=== PATIENT | female | born 1945 | race Caucasian/White ===

== ENCOUNTER 2016-11-17 17:13 | Inpatient (IN) | payer BC, MEDICARE ==
[2016-11-17] MEDS ORDERED: NS 0.9% 1000 ML* 1,000 ML IV ONE ×2 (19:47→20:27)
[2016-11-17 20:24] LABS: Hematocrit 35 % (35-47); Hemoglobin 11.3 g/dl (12.0-16.0); Mean Corpuscular HGB Conc 32 g/dl (31-36); Mean Corpuscular Hemoglobin 30 pg (27-31); Mean Corpuscular Volume 93 fL (80-97); Mean Platelet Volume 7 um3 (7.4-10.4); Red Blood Count 3.75 10^6/ul (4.0-5.4); Red Cell Distribution Width 15 % (10.5-15); White Blood Count 12.4 10^3/ul (3.5-10.8)
[2016-11-17] MEDS ORDERED: Acetaminophen TAB* 325 MG PO ONE (20:26)
[2016-11-17] MEDS ORDERED: fentaNYL* 50 MCG/ML 2 ML VIAL (100 MCG VIAL) IV SLOW PU ONE (20:26)
[2016-11-17 20:39] LABS: ALT 15 U/L (7-52); Albumin 3.6 g/dL (3.2-5.2); Alkaline Phosphatase 92 U/L (34-104); BUN/Creatinine Ratio 24.7 (8-20); Blood Urea Nitrogen 18 mg/dL (6-24); C Reactive Protein 221.07 mg/L (< 5.00); CO2 Carbon Dioxide 32 mmol/L (22-32); Calcium 9.7 mg/dL (8.6-10.3); Chloride 99 mmol/L (101-111); EGFR African American 100.8 (>60); EGFR Non-African American 78.4 (>60); Globulin 4.9 g/dL (2-4); Glucose 96 mg/dL (70-100); Sodium 134 mmol/L (133-145); Total Protein 8.5 g/dL (6.4-8.9)
[2016-11-17 20:47] LABS: Anion Gap 3 mmol/L (2-11)
[2016-11-17] MEDS ORDERED: Vancomycin(*) 1,000 MG VIAL IVPB SCH (21:00)
[2016-11-17] MEDS ORDERED: Vancomycin 1500 MG IV - x ONCE IVPB ONE ×2 (21:00)
--- NOTE | 2016-11-17 21:12 | ED ---
Jackie Lal Alfonso scribed for Priscila Hinton MD on 11/17/16 at 1923 . Lower Extremity - HPI Summary HPI Summary: This patient is a 71 year old F presenting to [facility] accompanied by daughter with a chief complaint of bilateral calf erythema worse since 3 days ago. The patient rates the pain 10/10 in severity. Symptoms aggravated by ambulation and touch. Symptoms alleviated by nothing. Patient reports calf swelling. Patient denies fever. She reports inability to ambulate. She has been seeing a phone triage specialist for her bilateral LE wounds. - History of Current Complaint Chief Complaint: EDExtremityLower Stated Complaint: LEG PAIN Time Seen by Provider: 11/17/16 19:06 Hx Obtained From: Patient Onset of Pain: Days - 3 Pain Intensity: 10 Pain Scale Used: 0-10 Numeric Timing: Constant Location: Is Discrete @ - RLE AND LLE Associated Signs And Symptoms: Positive: Other - calf swelling. Patient denies fever. Aggravating Factor(s): Ambulation, Other - touch Alleviating Factor(s): Nothing - Allergies/Home Medications Allergies/Adverse Reactions: Allergies Allergy/AdvReac Type Severity Reaction Status Date / Time Amoxicillin Allergy Rash Verified 11/17/16 17:22 Iodine Allergy Difficulty Verified 11/17/16 17:23 Breathing/Wheezing Sulfa Antibiotics Allergy Rash Verified 11/17/16 17:22 PMH/Surg Hx/FS Hx/Imm Hx Opthamlomology History: Denies: Hx Legally Blind EENT History: Denies: Hx Deafness Infectious Disease History: Yes Infectious Disease History: Denies: Traveled Outside the [place] in Last 30 Days - Family History Known Family History: Positive: Diabetes - Social History Alcohol Use: Rare Substance Use Type: Reports: None Smoking Status (MU): Never Smoked Tobacco Review of Systems Negative: Fever Positive: Other - bilateral calf swelling Positive: Other - bilateral calf erythema All Other Systems Reviewed And Are Negative: Yes Physical Exam Triage Information Reviewed: Yes Vital Signs On Initial Exam: Initial Vitals Temp Pulse Resp BP Pulse Ox 99.0 F 83 20 169/75 97 11/17/16 17:18 11/17/16 17:18 11/17/16 17:18 11/17/16 17:18 11/17/16 17:18 Vital Signs Reviewed: Yes Appearance: Positive: Well-Appearing, Pain Distress - Moderate Skin: Positive: Warm, Skin Color Reflects Adequate Perfusion, Dry Eyes: Positive: EOMI, ISH ENT: Positive: Pharynx normal, TMs normal Neck: Positive: Supple, Nontender Respiratory/Lung Sounds: Positive: Clear to Auscultation, Breath Sounds Present. Negative: Rales, Rhonchi, Wheezes Cardiovascular: Positive: RRR, Other - No gallop. Negative: Murmur, Rub Abdomen Description: Positive: Nontender, Soft, Other: - No rebound. Negative: Distended, Guarding Bowel Sounds: Positive: Present Musculoskeletal: Positive: Other - RLE: Erythema from middle of her lower foot to her upper calf. 1 cm ulcerated areas. Tender. LLE: Foot darkened and red with brawny appearance. Proximal calf 4 cm circumference area of increased erythema. Tender. Neurological: Positive: Alert, Oriented to Person Place, Time, CN Intact II-III Psychiatric: Positive: Affect/Mood Appropriate - [place] Coma Scale Coma Scale Total: 15 Diagnostics - Vital Signs Vital Signs Temp Pulse Resp BP Pulse Ox 11/17/16 17:18 99.0 F 83 20 169/75 97 - Laboratory Lab Results: Lab Results 11/17/16 11/17/16 Range/Units 20:05 20:05 WBC 12.4 H (3.5-10.8) 10^3/ul RBC 3.75 L (4.0-5.4) 10^6/ul Hgb 11.3 L (12.0-16.0) g/dl Hct 35 (35-47) % MCV 93 (80-97) fL MCH 30 (27-31) pg MCHC 32 (31-36) g/dl RDW 15 (10.5-15) % Plt Count 326 (150-450) 10^3/ul MPV 7 L (7.4-10.4) um3 Neut % (Auto) 69.5 (38-83) % Lymph % (Auto) 19.2 L (25-47) % [place] % (Auto) 8.8 (1-9) % Eos % (Auto) 1.4 (0-6) % Baso % (Auto) 1.1 (0-2) % Absolute Neuts (auto) 8.6 H (1.5-7.7) 10^3/ul Absolute Lymphs (auto) 2.4 (1.0-4.8) 10^3/ul Absolute Monos (auto) 1.1 H (0-0.8) 10^3/ul Absolute Eos (auto) 0.2 (0-0.6) 10^3/ul Absolute Basos (auto) 0.1 (0-0.2) 10^3/ul Absolute Nucleated RBC 0 10^3/ul Nucleated RBC % 0 Sodium 134 (133-145) mmol/L Potassium TNP Chloride 99 L (101-111) mmol/L Carbon Dioxide 32 (22-32) mmol/L Anion Gap 3 (2-11) mmol/L BUN 18 (6-24) mg/dL Creatinine 0.73 (0.51-0.95) mg/dL Est GFR ( Amer) 100.8 (>60) Est GFR (Non-Af Amer) 78.4 (>60) BUN/Creatinine Ratio 24.7 H (8-20) Glucose 96 (70-100) mg/dL Calcium 9.7 (8.6-10.3) mg/dL Total Bilirubin 0.50 (0.2-1.0) mg/dL AST TNP ALT 15 (7-52) U/L Alkaline Phosphatase 92 (34-104) U/L C-Reactive Protein 221.07 H (< 5.00) mg/L Total Protein 8.5 (6.4-8.9) g/dL Albumin 3.6 (3.2-5.2) g/dL Globulin 4.9 H (2-4) g/dL Albumin/Globulin Ratio 0.7 L (1-3) Result Diagrams: 11/17/16 20:05 11/17/16 20:05 Lab Statement: Any lab studies that have been ordered have been reviewed, and results considered in the medical decision making process. - Radiology Lower extremity X-Ray Radiology Interpretation Completed By: Radiologist - Pending official interpretation from radiologist. See [employer]. Lower Extremity Course/Dx - Course Assessment/Plan: 71 yo female with new right leg cellulitis will be admitted by Dr. Gray - Diagnoses Provider Diagnoses: Cellulitis - Physician Notifications Discussed Care Of Patient With: Deanna Gray Time Discussed With Above Provider: 20:30 Instructed by Provider To: Other - Consulted Dr. Gray (hospitalist) who agrees to admit. Discharge - Discharge Plan Condition: Stable Disposition: ADMITTED TO [facility] documentation as recorded by the Jackie werner Alfonso accurately reflects the service I personally performed and the decisions made by me, Priscila Hinton MD.
--- NOTE | 2016-11-17 21:13 | RAD ---
Indication: Right lower leg cellulitis Comparison: None. Technique: AP and lateral views right lower leg. Report: There is radiographic appearance of induration of the subcutaneous fat seen diffusely. The visualized bones are adequately corticated and well aligned. There is no acute fracture, dislocation or other focal abnormality. The soft tissues appear grossly normal. IMPRESSION: The radiographic appearance is consistent with induration of the subcutaneous fat without underlying acute bony abnormality. If the patient's symptoms persist, follow-up imaging is recommended.
[2016-11-17] MEDS ORDERED: Ondansetron INJ* 2 MG/ML VIAL IV PRN (21:32)
[2016-11-17] MEDS ORDERED: Morphine INJ* 2 MG/ML 1 ML SYRINGE (TWO MG - NEW SYRINGE VERSION) IV PRN (21:32)
[2016-11-17] MEDS ORDERED: NS 0.9% 1000 ML* 1,000 ML IV SCH (21:45)
[2016-11-17] MEDS ORDERED: Vancomycin per Pharmacy* NOTE FOLLOW UP PRN (23:13)
[2016-11-17] MEDS ORDERED: Vancomycin(*) 1,500 MG in NS 0.9% 250 ML* 250 ML IVPB ONE (23:30)
[2016-11-18] MEDS: Heparin VIAL(*) 5000 UNITS/ML VIAL (FIVE THOUSAND) SUBCUT SCH ×4 (00:21→21:24)
[2016-11-18] MEDS ORDERED: oxyCODONE/Acetamin 5/325 MG* TAB PO PRN (01:21)
[2016-11-18] MEDS: fentaNYL* 50 MCG/ML 2 ML VIAL (100 MCG VIAL) IV SLOW PU PRN ×5 (01:56→23:32)
[2016-11-18 06:38] LABS: BUN/Creatinine Ratio 28.4 (8-20); C Reactive Protein 184.75 mg/L (< 5.00); Calcium 8.6 mg/dL (8.6-10.3); EGFR African American 111.3 (>60); EGFR Non-African American 86.5 (>60); Potassium 3.7 mmol/L (3.5-5.0)
[2016-11-18 06:39] LABS: Hematocrit 30 % (35-47); Hemoglobin 9.7 g/dl (12.0-16.0); Mean Corpuscular HGB Conc 33 g/dl (31-36); Mean Corpuscular Hemoglobin 30 pg (27-31); Mean Corpuscular Volume 93 fL (80-97); Mean Platelet Volume 7 um3 (7.4-10.4); Red Cell Distribution Width 15 % (10.5-15); White Blood Count 8.6 10^3/ul (3.5-10.8)
[2016-11-18 06:40] LABS: Add Diff/Slide Review? Slide Review Added
--- NOTE | 2016-11-18 07:42 | RAD ---
INDICATION: Hypertension. Tachycardia. COMPARISON: None TECHNIQUE: An AP seated portable view obtained at 2228 hours is submitted. FINDINGS: Bones/Soft Tissues: There are no acute bony findings. Cardiomediastinal: The cardiomediastinal silhouette is normal. Lungs: There are no infiltrates. There is mild platelike atelectasis or scarring in both lung bases Pleura: There are no pleural effusions. Other: None IMPRESSION: MILD PLATELIKE ATELECTASIS OR SCARRING. NO ACTIVE DISEASE.
--- NOTE | 2016-11-18 07:45 | RAD ---
INDICATION: Pain and swelling. COMPARISON: None TECHNIQUE: Duplex interrogation of the Lowerextremity was performed. FINDINGS: Deep veins: The common femoral, great saphenous, profunda femoris, proximal, mid, and distal deep femoral, popliteal, posterior tibial, and peroneal veins are patent. There is normal compressibility, augmentation, and phasic flow. Superficial veins: There are no findings of superficial thrombophlebitis. Popliteal fossa:There is no evidence of a popliteal cyst. Soft tissues:There are multiple shotty appearing lymph nodes in the right inguinal region. There is subcutaneous edema. IMPRESSION: SUSPECT CELLULITIS.. NO EVIDENCE OF DEEP VENOUS THROMBOSIS
[2016-11-18] MEDS ORDERED: Vancomycin(*) 1,000 MG in NS 0.9% 250 ML* 250 ML IVPB SCH ×2 (08:00→16:00)
[2016-11-18] MEDS: Nadolol TAB* 40 MG PO SCH (08:36)
--- NOTE | 2016-11-18 08:40 | CONSULT ---
Consult Consult: Orthopedic Consult S: 71 yo female with longstanding h/o bilateral LE erythema and recurrent wounds. Presented to [facility] last night with concerns of worsening erythema, pain, and wounds on bilateral LE. Having difficulty ambulating secondary to pain and swelling. Denies fever. Followed regularly by business account specialist Dr. Jeffries. This morning she reports pain is well managed with meds. She feels the swelling is slowly decreasing. O: A and O x 3, NAD, Afebrile Bilateral LE with marked erythema from just distal to knee down to proximal foot , and scattered small (approx 1 cm in diameter) wounds. Most are scabbed over. One small wound on R ojeda is open but not actively draining. Skin with areas of brawny appearance. Induration R ojeda. TTP. Bilateral mild/mod swelling along lengths of lower legs. Calves soft/NT. 2 + PT and DP pulses bilaterally. Distal sensation intact. Gross motor intact but limited ROM in ankles secondary to swelling/pain. Vital Signs: Temp Pulse Resp BP Pulse Ox 97.6 F 56 16 113/60 99 11/18/16 07:24 11/18/16 07:24 11/18/16 07:24 11/18/16 07:24 11/18/16 07:24 Laboratory Results - last 24 hr 11/17/16 11/17/16 11/17/16 20:05 20:05 20:53 WBC 12.4 H RBC 3.75 L Hgb 11.3 L Hct 35 MCV 93 MCH 30 MCHC 32 RDW 15 Plt Count 326 MPV 7 L Neut % (Auto) 69.5 Lymph % (Auto) 19.2 L [place] % (Auto) 8.8 Eos % (Auto) 1.4 Baso % (Auto) 1.1 Absolute Neuts (auto) 8.6 H Absolute Lymphs (auto) 2.4 Absolute Monos (auto) 1.1 H Absolute Eos (auto) 0.2 Absolute Basos (auto) 0.1 Absolute Nucleated RBC 0 Nucleated RBC % 0 INR (Anticoag Therapy) Sodium 134 Potassium TNP Chloride 99 L Carbon Dioxide 32 Anion Gap 3 BUN 18 Creatinine 0.73 Est GFR ( Amer) 100.8 Est GFR (Non-Af Amer) 78.4 BUN/Creatinine Ratio 24.7 H Glucose 96 Lactic Acid 0.8 Calcium 9.7 Total Bilirubin 0.50 AST TNP ALT 15 Alkaline Phosphatase 92 C-Reactive Protein 221.07 H Total Protein 8.5 Albumin 3.6 Globulin 4.9 H Albumin/Globulin Ratio 0.7 L 11/18/16 11/18/16 11/18/16 06:07 06:07 06:07 WBC 8.6 RBC 3.20 L Hgb 9.7 L Hct 30 L MCV 93 MCH 30 MCHC 33 RDW 15 Plt Count 285 MPV 7 L Neut % (Auto) 61.0 Lymph % (Auto) 25.4 [place] % (Auto) 8.9 Eos % (Auto) 3.6 Baso % (Auto) 1.1 Absolute Neuts (auto) 5.3 Absolute Lymphs (auto) 2.2 Absolute Monos (auto) 0.8 Absolute Eos (auto) 0.3 Absolute Basos (auto) 0.1 Absolute Nucleated RBC 0 Nucleated RBC % 0 INR (Anticoag Therapy) 1.21 H Sodium 135 Potassium 3.7 Chloride 104 Carbon Dioxide 26 Anion Gap 5 BUN 19 Creatinine 0.67 Est GFR ( Amer) 111.3 Est GFR (Non-Af Amer) 86.5 BUN/Creatinine Ratio 28.4 H Glucose 85 Lactic Acid Calcium 8.6 Total Bilirubin AST ALT Alkaline Phosphatase C-Reactive Protein 184.75 H Total Protein Albumin Globulin Albumin/Globulin Ratio X-ray R LE - no underlying acute bony abnormality Venous Doppler R LE - no evidence of DVT MRI R LE - awaiting results A: Bilateral LE cellulitis P: Will review results of R LE MRI Ortho will follow as needed - no further recommendations from ortho at this time
[2016-11-18] MEDS ORDERED: Pneumococcal *Vac Polyvalent 0.5 ML VIAL IM ONE (09:00)
--- NOTE | 2016-11-18 09:23 | RAD ---
Indication: Ankle swelling and edema. Image Sequences: Sagittal T1, STIR, coronal T1, STIR, axial T1 and STIR images were obtained. The study is limited by motion artifact. Diffuse soft tissue edema is noted in the subcutaneous tissue especially along the dorsum of the foot. No drainable fluid collection is noted. There is fusiform enlargement of the Achilles tendon, but no evidence of abnormal signal is noted. This may represent chronic scar or tendinopathy. Plantar fascia is grossly intact. Peroneal brevis and longus tendons are intact. Posterior tibialis, flexor hallucis longus and flexor digitorum longus tendons are intact. No evidence of bone marrow edema is noted. IMPRESSION: Subcutaneous edema surrounding the ankle. No drainable fluid collections are noted. No evidence of bone marrow edema is noted. Motion artifact limits the examination.
[2016-11-18] MEDS: ceFAZolin 1 GM VIAL(*) 1 GM in NS 0.9% 50 ML* 50 ML IVPB SCH ×2 (11:24→18:30)
[2016-11-18] MEDS: Acetaminophen TAB* 325 MG PO PRN ×2 (11:24→21:24)
--- NOTE | 2016-11-18 14:41 | PN ---
Subjective Date of Service: 11/18/16 Interval History: HOSPITALIST PROGRESS NOTE Patient seen and examined at bedside. She feels a little better today, with less pain and swelling to her RLE extremity. Family History: Unchanged from Admission Social History: Unchanged from Admission Past Medical History: Unchanged from Admission Objective Active Medications: Acetaminophen (Tylenol Tab*) 650 mg PO Q4H PRN PRN Reason: FEVER/PAIN Last Admin: 11/18/16 11:24 Dose: 650 mg Fentanyl Citrate (Fentanyl*) 25 mcg IV SLOW PU Q4H PRN PRN Reason: PAIN Last Admin: 11/18/16 08:59 Dose: 25 mcg Heparin Sodium (Porcine) (Heparin Vial(*)) 5,000 units SUBCUT Q8HR MU Last Admin: 11/18/16 14:31 Dose: 5,000 units Sodium Chloride (Ns 0.9% 1000 Ml*) 1,000 mls @ 100 mls/hr IV PER RATE MU Stop: 11/19/16 07:44 Cefazolin Sodium 1 gm/ Sodium (Chloride) 50 mls @ 200 mls/hr IVPB Q8H MU Last Admin: 11/18/16 11:24 Dose: 200 mls/hr Nadolol (Corgard Tab*) 40 mg PO DAILY [facility] Last Admin: 11/18/16 08:36 Dose: 40 mg Ondansetron HCl (Zofran Inj*) 4 mg IV Q6H PRN PRN Reason: NAUSEA Oxycodone/Acetaminophen (Percocet 5/325 Tab*) 1 tab PO Q4H PRN PRN Reason: PAIN Last Admin: 11/18/16 04:57 Dose: 1 tab Vital Signs 11/18/16 11/18/16 11/18/16 08:00 08:59 11:21 Temperature 97.5 F Pulse Rate 52 Respiratory Rate Blood Pressure 143/65 (mmHg) O2 Sat by Pulse 100 Oximetry Oxygen Devices in Use Now: None Appearance: Pleasant lady lying in bed in NAD. Eyes: No Scleral Icterus Ears/Nose/Mouth/Throat: Mucous Membranes Moist Neck: Trachea Midline Respiratory: Symmetrical Chest Expansion and Respiratory Effort, Clear to Auscultation Cardiovascular: RRR - Normal S1 and S2 Abdominal: NL Sounds; No Tenderness; No Distention Extremities: - - Bilateral LE edema, R>L. RLE has erythema, small open area on her ojeda with purulent drainage. Neurological: Alert and Oriented x 3, NL Muscle Strength and Tone Lines/Tubes/Other Access: Clean, Dry and Intact Peripheral IV Nutrition: Taking PO's Result Diagrams: 11/18/16 06:07 11/18/16 06:07 Assess/Plan/Problems-Billing Assessment: Mrs. Burch is a 71 yo F with PMH of HTN, chronic venous insufficiency, chronic LE wounds, who presented to ED with c/o pain, edema, erythema of her RLE, found to have cellulitis. - Patient Problems (1) Cellulitis of right leg Comment: - Xray showed no acute bony abnormalities. - LE doppler was negative for DVT. - MRI showed subcutaneous edema surrounding ankle, but no drainable fluid collections, no bone marrow edema, suggestive of cellulitis. - She has limited ROM secondary to pain, but passive ROM is full. Septic arthritis unlikely. - Ortho and ID input appreciated. - Continue Vanco and Cefazolin. (2) Venous insufficiency of both lower extremities Comment: - Continue to follow at the Wound clinic as outpatient. (3) HTN (hypertension) Comment: - Controlled. - Continue Nadolol and resume Furosemide. (4) DVT prophylaxis Comment: - SQ heparin. (5) Full code status Status and Disposition: Inpatient for management of RLE cellulitis requiring >48h for stabilization.
--- NOTE | 2016-11-18 14:45 | CONS ---
CONSULTATION REPORT: DATE OF CONSULT: 11/18/16 REQUESTING PROVIDER: Filippo Shelby NP CONSULTING SERVICE: Infectious Disease. REASON FOR CONSULTATION: Right leg cellulitis and ankle pain. IMPRESSION: 1. Three days of chills, worsening right leg swelling, redness, and pain below the knee extending into the ankle joint that included pain with weightbearing. This morning her pain and swelling in the ankle and range of motion of the ankle is improving. Differential diagnosis for her ankle symptoms include pain secondary to adjacent inflammation from cellulitis versus septic arthritis versus suppurative tenosynovitis versus gout or pseudogout. On exam, I am not convinced she has an ankle effusion and given that her symptoms are considerably improved today, I think most likely this is a cellulitis. She does have an MRI done overnight, the report is pending. 2. Bilateral lower extremity venous insufficiency with venous stasis ulceration. RECOMMENDATIONS: Continue Ancef 1 g IV every 8 hours to cover strep. We will stop the vancomycin. There was a small anterior lower leg area of purulent drainage without surrounding fluctuance or induration. I took a bacterial culture of that. Continue elevation of the leg, which will be most important for helping her symptoms improve as well as anti-inflammatories if she is able to tolerate them. HISTORY OF PRESENT ILLNESS: This is a 71-year-old woman with venous insufficiency, admitted with right leg and ankle pain. She had been fine until Tuesday she started to get chills and sweats. She developed right leg pain, swelling, redness and extended into the ankle and became painful to bear weight over the last day or so. She came to the ER yesterday. Her white blood cell count was 12,000. Her CRP was 220. She was started on vancomycin and then Ancef out of this morning. She had an ultrasound of the right leg that showed no DVT. She had a chest x-ray yesterday that showed atelectasis. She had a x- ray of her right lower extremity that showed induration of the subcutaneous fat without bony abnormality. This morning she can move her ankle more, it is less painful, the pain is a little more focused up the leg now, nothing involving the knee. She has no fevers, chills, or sweats and her appetite is good today. She has had wounds of the legs, which have been followed by Dr. Jeffries over the years. None are particularly active now. There is a small area in the anterior ojeda that has a scant amount of purulent drainage that she has noticed for a day or two without anything that she thinks looks like an abscess around it. PAST MEDICAL HISTORY: SVT, treated with ablation. MEDICATIONS: 1. Tylenol. 2. Heparin subcutaneous injections. 3. Cefazolin 1 g IV every 8 hours. 4. Nadolol. 5. Vancomycin 1 g every 8 hours IV. ALLERGIES: To AMOXICILLIN and SULFA, which caused rash. Also allergic to IODINE. FAMILY HISTORY: No recurrent infections. SOCIAL HISTORY: She lives in [place]. She works in [employer] in [employer]. She has no travel or sick contacts. REVIEW OF SYSTEMS: All negative except as noted above. PHYSICAL EXAM: Vital Signs: Temperature 36.4, heart rate 56, respiratory rate 16, blood pressure 113/60, O2 sat 99% on room air. In general, she is awake and not in distress. Neurologic: She is oriented x3. Follows all commands. Sensation is intact to light in both feet. HEENT: There is no conjunctival hemorrhage. Oropharynx without lesions. Neck is supple without nuchal rigidity. Lymph Nodes: There is no inguinal, axillary, or epitrochlear lymphadenopathy. Heart has regular rate and rhythm without murmurs, rubs, or gallops. Lungs are clear to auscultation bilaterally. Abdomen is soft, nontender, and nondistended. There are bowel sounds present. Skin: There is no diffuse erythema, warmth. Mild tenderness from 3 or 4 inches below the knee to a couple of inches above the ankle. There is crepitus or fluctuance. There is an anterior area of granulation tissue with a scant amount of purulent drainage. There is no crepitus or fluctuance. Musculoskeletal: There is no spine tenderness to palpation. There is no right ankle effusion. There is mild edema throughout the ankle and up through the leg. There is no crepitus or tenderness in the ankle joint today. She does have decreased flexion and extension, inversion and eversion, which is slightly painful but seemed mostly restricted due to edema. DIAGNOSTIC STUDIES/LAB DATA: Creatinine 0.6, CRP 184. Today, white blood cell count 8 down from 12, platelets 285,000. Please see impressions and recommendations outlined above, which I have discussed with Dr. Mohamud. Thank you for asking me to see Ms. Burch in consultation. [id number]/[facility] #: [id number] CARLITA
--- NOTE | 2016-11-18 14:52 | HP ---
CC: Dr. Blake; Dr. Peterson * HISTORY AND PHYSICAL: DATE OF ADMISSION: 11/17/16 PRIMARY CARE PROVIDER: Dr. Blake. ATTENDING PHYSICIAN WHILE IN THE HOSPITAL: Deanna Gray MD * (report dictated by Filippo Shelby NP) CHIEF COMPLAINT: Right lower extremity redness and ankle swelling and ankle pain. HISTORY OF PRESENTING ILLNESS: Ms. Burch is a 71-year-old female patient with a peripheral vascular disease, hypertension, hyperlipidemia, history of tachyarrhythmia, status post ablation and also carries a history of edema on chronic Lasix. She comes into the ER today stating that since Tuesday she noticed that blisters developed on her lower extremity and then over the last 3 days she has had progressive worsening swelling of her right ankle, redness, warmth and pain with movement, to the point where she could not walk or bear weight on the ankle, because it hurt so much. She states that she has been having chills. She does state that she chronically has bilateral lower extremity redness but the redness on the right side is much much worse; it is streaking down into the foot and her ankle has gotten swollen on her right side. She denies any pain specifically in the calf, it is mostly in the leg when she tries to walk. She denied any other symptoms of chest pain, shortness of breath. She denied having any abdominal discomfort. No nausea or any vomiting. She denied having any dysuria but she was concerned because of the redness, she came into the ER here today. She normally gets her care in [place] but her curriculum specialist Dr. Jeffries is located here and in fact she was actually supposed to follow up with Dr. Ellison in the summertime for evaluation for lower extremity peripheral vascular disease but she did not keep the appointment. She was evaluated here today. It was noted that she had an elevated CRP, her white cell count was elevated, and because of these findings, we were asked to evaluate for admission. PAST MEDICAL HISTORY: Significant for: 1. PVD. 2. Hypertension. 3. Hyperlipidemia. 4. Tachyarrhythmia. 5. Chronic edema. PAST SURGICAL HISTORY: 1. She has had an ablation. 2. Appendectomy. HOME MEDICATIONS: Include, 1. Nadolol 40 mg daily. 2. Lasix 40 mg daily. ALLERGIES TO MEDICATIONS: AMOXICILLIN and SULFA. FAMILY HISTORY: Mother had a history of heart disease. Father had a history of blood clots. SOCIAL HISTORY: She does not smoke. Rarely drinks alcohol. Surrogate decision maker is her daughter. REVIEW OF SYSTEMS: There is no documented fever but she does admit to having chills. She denies having any significant weight change. There was no double vision. She denies having any ear discharge. She denied having any rhinorrhea. There was no sore throat. No thyroid enlargement. She denied having any chest pain. No orthopnea. No nocturnal dyspnea. There was no abdominal pain. There was no nausea. No vomiting. No dysuria. No frequency. There was no seizure. No loss of consciousness. No pruritus. There are skin ulcerations to her right lower extremity. PHYSICAL EXAMINATION GENERAL: At this time, Ms. Burch is a 71-year-old female patient; she appears well nourished, well developed. She does not appear to be in any acute distress. She is sitting in the ER stretcher. VITAL SIGNS: Blood pressure 159/75, pulse 83, respirations 20, O2 sat 97%, temperature 99.0. HEENT: Head is atraumatic and normocephalic. Eyes: EOMs are intact. Sclerae were anicteric and not pale. Throat: Oral mucosa appears to be moist. No oropharyngeal erythema. NECK: Supple. LUNGS: Clear to auscultation. No wheezes, rales, or rhonchi. HEART: Sounds S1, S2. Regular rate and rhythm. No murmurs, rubs, or gallops. ABDOMEN: Soft, flat, nontender. Bowel sounds were present. EXTREMITIES: She has bilateral lower extremity erythema, looks like chronic erythema; however on the right side, the right ankle is swollen, it is tender along the Achilles tendon. It is tender to the lateral malleolus and just painful with movement. There is erythema there extending down into the mid foot , which is new and it is warm, and she does have wounds noted to the blisters to the right lower extremity as well. Pulses were 2+ throughout. She is moving all 4 extremities with 5/5 strength. NEUROLOGICAL: The patient is awake, alert, and oriented x3. Tongue midline. Copy Messenger were equal. No gross focal deficits. SKIN: Grossly intact with the exception of the aforementioned blisters. LABORATORY DATA/DIAGNOSTIC STUDIES: Today revealed a WBC 12.4, RBC of 3.75, hemoglobin of 11.3, hematocrit of 35, platelet count of 326. Sodium was 134, chloride of 99, bicarb 32, BUN was 18, creatinine 0.73, glucose of 96, lactate 0.8, calcium 9.7. Total bili 0.5, AST pending, ALT 15, alk phos 92. CRP was 221. Albumin was 3.6. The patient did have a lower extremity x-ray obtained today, which revealed radiographic appearance consistent with induration of the subcutaneous fat without underlying acute bony abnormality. She did have an extremity arterial study done in June of this year, with impression of reduced material compressibility, limits the specificity of the right ankle IGOR, moderate claudication range right toe brachial index consistent with distal small vessel disease, normal range of left ankle brachial index, moderate claudication range left toe brachial index consistent with distal small vessel disease given a mild abnormal left posterior tibial and dorsalis pedis waveforms consistent with both left inflow disease and intrinsic lower extremity stenosis. Old medical records were reviewed. ASSESSMENT AND PLAN: Ms. Burch is a 71-year-old female patient coming into the ER today with complaints of worsening redness and swelling to her right ankle and lower extremity. We were asked to evaluate for possible cellulitis. She will be admitted under inpatient status for: 1. Cellulitis with concern possible septic arthritis. I did touch base with Dr. Peterson who at this recommended getting more imaging, particularly an MRI of that ankle, which she is getting done tonight. I will place her on vancomycin, panculture her. I will get an EKG and chest x-ray as well as in case I and D is needed and washout. I did have a phone call out to our ID specialist as well. We will get blood cultures. We will hydrate her. We will get her on fluids and we will get her on antibiotics and fluids. We will continue to follow. 2. Peripheral vascular disease. We could consider further consult with Dr. Ellison or Dr. Tracy per this patient. At this point though I would like to get the MRI first to assess that ankle and then we may need to consider getting a CTA with run off of that lower extremity as well. 3. Hypertension. Continue meds as prescribed with the exception of the Lasix. 4. Chronic edema. Again, we are going to hold the Lasix. 5. Hyperlipidemia. We will continue with lifestyle modifications. 6. DVT prophylaxis. She is high risk and placed her on heparin subcu. 7. Code status. Full code. 8. Fluids, electrolytes, and nutrition. She can have a heart healthy diet. TIME SPENT: On the admission was approximately 60 minutes; greater than half the time was spent [id number] with the patient obtaining my history and physical, other half the time was spent going over the plan of care with the patient and implementing the plan of care. I did discuss the plan of care with my attending Dr. Gray; she is in agreement. FILIPPO SHELBY, GAME ARTIST [id number]/[facility] #: [id number] CARLITA
[2016-11-18] MEDS ORDERED: Vancomycin per Pharmacy* NOTE FOLLOW UP PRN (15:19)
[2016-11-18] MEDS: Vancomycin(*) 1,000 MG in NS 0.9% 250 ML* 250 ML IVPB SCH (15:57)
[2016-11-19] MEDS ORDERED: Vancomycin Trough Check NOTE FOLLOW UP ONE
[2016-11-19] MEDS: Vancomycin(*) 1,000 MG in NS 0.9% 250 ML* 250 ML IVPB SCH ×4 (00:47→23:22)
[2016-11-19] MEDS: Acetaminophen TAB* 325 MG PO PRN ×6 (01:17→21:15)
[2016-11-19] MEDS: ceFAZolin 1 GM VIAL(*) 1 GM in NS 0.9% 50 ML* 50 ML IVPB SCH ×3 (02:30→17:52)
[2016-11-19] MEDS: fentaNYL* 50 MCG/ML 2 ML VIAL (100 MCG VIAL) IV SLOW PU PRN ×6 (03:32→23:22)
[2016-11-19] MEDS: Heparin VIAL(*) 5000 UNITS/ML VIAL (FIVE THOUSAND) SUBCUT SCH ×3 (05:17→21:16)
[2016-11-19] MEDS: Nadolol TAB* 40 MG PO SCH (07:32)
[2016-11-19] MEDS: Furosemide TAB* 40 MG PO SCH (07:33)
--- NOTE | 2016-11-19 08:52 | PN ---
Progress Note - Progress Note Date of Service: 11/19/16 SOAP: Subjective: 71 y/o female with Objective: [] Assessment: [] Plan: - WBC improved, continue ABX per ID -
--- NOTE | 2016-11-19 14:33 | PN ---
Subjective Date of Service: 11/19/16 Interval History: HOSPITALIST PROGRESS NOTE Patient seen and examined at bedside. She feels a little better today. RLE is less swollen, less red, and pain is better controlled. She's able to ambulate with steady gait to the bathroom and back. Family History: Unchanged from Admission Social History: Unchanged from Admission Past Medical History: Unchanged from Admission Objective Active Medications: Acetaminophen (Tylenol Tab*) 650 mg PO Q4H PRN PRN Reason: FEVER/PAIN Last Admin: 11/19/16 13:13 Dose: 650 mg Fentanyl Citrate (Fentanyl*) 25 mcg IV SLOW PU Q4H PRN PRN Reason: PAIN Last Admin: 11/19/16 11:31 Dose: 25 mcg Furosemide (Lasix Tab*) 40 mg PO DAILY [facility] Last Admin: 11/19/16 07:33 Dose: 40 mg Heparin Sodium (Porcine) (Heparin Vial(*)) 5,000 units SUBCUT Q8HR [facility] Last Admin: 11/19/16 13:14 Dose: 5,000 units Cefazolin Sodium 1 gm/ Sodium (Chloride) 50 mls @ 200 mls/hr IVPB Q8H [facility] Last Admin: 11/19/16 10:26 Dose: 200 mls/hr Vancomycin HCl 1,000 mg/ (Sodium Chloride) 250 mls @ 166.667 mls/hr IVPB Q8H [facility] Last Admin: 11/19/16 07:39 Dose: 166.667 mls/hr Nadolol (Corgard Tab*) 40 mg PO DAILY [facility] Last Admin: 11/19/16 07:32 Dose: 40 mg Ondansetron HCl (Zofran Inj*) 4 mg IV Q6H PRN PRN Reason: NAUSEA Oxycodone/Acetaminophen (Percocet 5/325 Tab*) 1 tab PO Q4H PRN PRN Reason: PAIN Last Admin: 11/18/16 04:57 Dose: 1 tab Pharmacy Consult (Vancomycin Per Pharmacy*) 1 note FOLLOW UP . PRN PRN Reason: PER PROTOCOL Pharmacy Profile Note (Vancomycin Trough Check) 1 note FOLLOW UP 07 ONE Stop: 11/20/16 07:31 Vital Signs 11/19/16 11/19/16 12:05 12:31 Temperature 97.8 F Pulse Rate 55 Respiratory 18 18 Rate Blood Pressure 126/65 (mmHg) O2 Sat by Pulse 99 Oximetry Oxygen Devices in Use Now: None Appearance: Pleasant elderly lady lying in bed in NAD. Eyes: No Scleral Icterus Ears/Nose/Mouth/Throat: Mucous Membranes Moist Neck: Trachea Midline Respiratory: Symmetrical Chest Expansion and Respiratory Effort, Clear to Auscultation Cardiovascular: RRR - Normal S1 an dS2 Extremities: - - Bilateral LE edema, R>L, with bilateral discoloration. Areas of blistering with serous drainage on right ojeda Neurological: Alert and Oriented x 3, NL Muscle Strength and Tone Lines/Tubes/Other Access: Clean, Dry and Intact Peripheral IV Nutrition: Taking PO's Result Diagrams: 11/18/16 06:07 11/18/16 06:07 Assess/Plan/Problems-Billing Assessment: Mrs. Burch is a 71 yo F with PMH of HTN, chronic venous insufficiency, chronic LE wounds, who presented to ED with c/o pain, edema, erythema of her RLE, found to have cellulitis. - Patient Problems (1) Cellulitis of right leg Comment: - Xray showed no acute bony abnormalities. - LE doppler was negative for DVT. - MRI showed subcutaneous edema surrounding ankle, but no drainable fluid collections, no bone marrow edema, suggestive of cellulitis. - Ortho and ID input appreciated. - Wound culture growing MRSA - continue Vanco and Cefazolin. (2) Venous insufficiency of both lower extremities Comment: - Wound care appreciated - will cover with xeroform and rolled gauze, Darian wraps as tolerated. (3) HTN (hypertension) Comment: - Controlled. - Continue Nadolol and Furosemide. (4) DVT prophylaxis Comment: - SQ heparin. (5) Full code status Status and Disposition: Inpatient for management of RLE cellulitis requiring >48h for stabilization.
[2016-11-20] MEDS: Acetaminophen TAB* 325 MG PO PRN ×6 (01:10→22:56)
[2016-11-20] MEDS: ceFAZolin 1 GM VIAL(*) 1 GM in NS 0.9% 50 ML* 50 ML IVPB SCH ×3 (01:10→17:59)
[2016-11-20] MEDS: fentaNYL* 50 MCG/ML 2 ML VIAL (100 MCG VIAL) IV SLOW PU PRN ×5 (03:23→20:55)
[2016-11-20] MEDS: Heparin VIAL(*) 5000 UNITS/ML VIAL (FIVE THOUSAND) SUBCUT SCH ×3 (05:25→20:55)
[2016-11-20] MEDS ORDERED: Vancomycin Trough Check NOTE FOLLOW UP ONE (07:30)
[2016-11-20] MEDS: Vancomycin(*) 1,000 MG in NS 0.9% 250 ML* 250 ML IVPB SCH ×2 (07:58→20:54)
[2016-11-20 08:49] LABS: EGFR African American 111.3 (>60); EGFR Non-African American 86.5 (>60); Vancomycin Trough 20.4 mcg/mL
[2016-11-20] MEDS: Furosemide TAB* 40 MG PO SCH (09:24)
[2016-11-20] MEDS: Nadolol TAB* 40 MG PO SCH ×2 (09:24→11:35)
[2016-11-20] MEDS: NADOLOL PO SCH (11:29)
[2016-11-20] MEDS: [UNRECOGNIZED DRUG - OTHER] PO SCH (11:29)
--- NOTE | 2016-11-20 16:06 | PN ---
Subjective Date of Service: 11/20/16 Interval History: Patient has continued redness, pain RT ankle, but can ambulate to bathroom. She wants to go home, but is talking about going to work Tuesday. Redness has decreased per patient. 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 Family History: Unchanged from Admission Social History: Unchanged from Admission Past Medical History: Unchanged from Admission Objective Active Medications: Acetaminophen (Tylenol Tab*) 650 mg PO Q4H PRN PRN Reason: FEVER/PAIN Last Admin: 11/20/16 14:01 Dose: 650 mg Fentanyl Citrate (Fentanyl*) 25 mcg IV SLOW PU Q4H PRN PRN Reason: PAIN Last Admin: 11/20/16 12:20 Dose: 25 mcg Furosemide (Lasix Tab*) 40 mg PO DAILY [facility] Last Admin: 11/20/16 09:24 Dose: 40 mg Heparin Sodium (Porcine) (Heparin Vial(*)) 5,000 units SUBCUT Q8HR [facility] Last Admin: 11/20/16 14:01 Dose: 5,000 units Cefazolin Sodium 1 gm/ Sodium (Chloride) 50 mls @ 200 mls/hr IVPB Q8H [facility] Last Admin: 11/20/16 10:19 Dose: 200 mls/hr Vancomycin HCl 1,000 mg/ (Sodium Chloride) 250 mls @ 166.667 mls/hr IVPB Q12H [facility] Pto - Corgard ( (Nadolol) Tab* 80 Mg) 1 dose PO DAILY [facility] Last Admin: 11/20/16 11:29 Dose: 1 dose Ondansetron HCl (Zofran Inj*) 4 mg IV Q6H PRN PRN Reason: NAUSEA Oxycodone/Acetaminophen (Percocet 5/325 Tab*) 1 tab PO Q4H PRN PRN Reason: PAIN Last Admin: 11/18/16 04:57 Dose: 1 tab Pharmacy Consult (Vancomycin Per Pharmacy*) 1 note FOLLOW UP . PRN PRN Reason: PER PROTOCOL Pharmacy Profile Note (Vancomycin Trough Check) 1 note FOLLOW UP ONCE ONE Stop: 11/22/16 08:31 Vital Signs 11/20/16 11/20/16 11/20/16 00:22 00:34 03:13 Temperature 36.8 C 36.6 C Pulse Rate 62 56 Respiratory 17 16 16 Rate Blood Pressure 118/59 125/61 (mmHg) O2 Sat by Pulse 98 99 Oximetry 11/20/16 11/20/16 11/20/16 07:36 08:00 08:29 Temperature 36.6 C Pulse Rate 56 Respiratory 18 14 14 Rate Blood Pressure 163/78 (mmHg) O2 Sat by Pulse 98 Oximetry Oxygen Devices in Use Now: None Eyes: No Scleral Icterus Ears/Nose/Mouth/Throat: Clear Oropharnyx Neck: NL Appearance and Movements; NL JVP Respiratory: Symmetrical Chest Expansion and Respiratory Effort, Clear to Auscultation Cardiovascular: NL Sounds; No Murmurs; No JVD, RRR Abdominal: NL Sounds; No Tenderness; No Distention, No Hepatosplenomegaly Lymphatic: No Cervical Adenopathy Extremities: - - 1+ edema bilat LE to shins Skin: - - multiple 1-2 cm area of erythema w/ xeroform bandages overlying. RT ankle w/ diffuse erythema, edema, tendernes, reduced ROM Neurological: Alert and Oriented x 3 Lines/Tubes/Other Access: Clean, Dry and Intact Peripheral IV Result Diagrams: 11/18/16 06:07 11/20/16 07:54 Additional Lab and Data: Lab Results Microbiology and Other Data: Microbiology 11/18/16 09:50 Leg Right Skin and Soft Tissue MRSA/MSSA (PCR - Final 11/18/16 09:50 Leg Right Wound Culture - Final Mrsa Positive S.aureus Positive MRSA Assess/Plan/Problems-Billing Assessment: Mrs. Burch is a 71 yo F with PMH of HTN, chronic venous insufficiency, chronic LE wounds, who presented to ED with c/o pain, edema, erythema of her RLE, found to have cellulitis now proven caused by MRSA. - Patient Problems (1) Cellulitis of right leg Current Visit: Yes Status: Acute Priority: High Code(s): L03.115 - CELLULITIS OF RIGHT LOWER LIMB SNOMED Code(s): 797028124 Comment: - LE doppler was negative for DVT. - MRI showed subcutaneous edema surrounding ankle, but no drainable fluid collections, no bone marrow edema, suggestive of cellulitis. - Ortho and ID input appreciated. - Wound culture growing MRSA - discussed with patient, she could go home on oral doxycycline tomorrow, benefitting from IV vancomycin at this point. (2) DVT prophylaxis Current Visit: Yes Status: Chronic Priority: Medium Code(s): [id number] - SNOMED Code(s): 275466398 Comment: - SQ heparin. (3) HTN (hypertension) Current Visit: Yes Status: Chronic Priority: Medium Code(s): I10 - ESSENTIAL (PRIMARY) HYPERTENSION SNOMED Code(s): 06162847 Comment: - under reasonable control. - Corrected Nadolol dose to home dose and continued Furosemide. Status and Disposition: Inpatient for management of RLE cellulitis requiring >48h for stabilization.
[2016-11-21] MEDS: fentaNYL* 50 MCG/ML 2 ML VIAL (100 MCG VIAL) IV SLOW PU PRN ×3 (01:02→09:40)
[2016-11-21] MEDS: ceFAZolin 1 GM VIAL(*) 1 GM in NS 0.9% 50 ML* 50 ML IVPB SCH ×3 (02:04→17:42)
[2016-11-21] MEDS: Acetaminophen TAB* 325 MG PO PRN ×4 (03:20→21:43)
[2016-11-21] MEDS: Heparin VIAL(*) 5000 UNITS/ML VIAL (FIVE THOUSAND) SUBCUT SCH ×3 (04:58→21:43)
[2016-11-21 06:08] LABS: EGFR African American 100.8 (>60); EGFR Non-African American 78.4 (>60)
[2016-11-21] MEDS: Vancomycin(*) 1,000 MG in NS 0.9% 250 ML* 250 ML IVPB SCH ×2 (07:51→21:42)
[2016-11-21] MEDS: NADOLOL PO SCH (07:58)
[2016-11-21] MEDS: [UNRECOGNIZED DRUG - OTHER] PO SCH (07:58)
[2016-11-21] MEDS: Furosemide TAB* 40 MG PO SCH (07:58)
[2016-11-21] MEDS ORDERED: oxyCODONE/Acetamin 5/325 MG* TAB PO PRN (10:56)
--- NOTE | 2016-11-21 11:19 | PN ---
Subjective Date of Service: 11/21/16 Interval History: Patient reports increased pain in legs, RT>LT. There is a "pulling" sensation. She was sitting in chair part of night, but elevating legs most of the time. She can walk to bathroom. Using fentanyl prn every 4hrs. Not clear that she's tried percocet, which is available. Family History: Unchanged from Admission Social History: Unchanged from Admission Past Medical History: Unchanged from Admission Objective Active Medications: Acetaminophen (Tylenol Tab*) 650 mg PO Q4H PRN PRN Reason: FEVER/PAIN Last Admin: 11/21/16 07:58 Dose: 650 mg Fentanyl Citrate (Fentanyl*) 25 mcg IV SLOW PU Q4H PRN PRN Reason: PAIN Last Admin: 11/21/16 09:40 Dose: 25 mcg Furosemide (Lasix Tab*) 40 mg PO DAILY [facility] Last Admin: 11/21/16 07:58 Dose: 40 mg Heparin Sodium (Porcine) (Heparin Vial(*)) 5,000 units SUBCUT Q8HR [facility] Last Admin: 11/21/16 04:58 Dose: 5,000 units Cefazolin Sodium 1 gm/ Sodium (Chloride) 50 mls @ 200 mls/hr IVPB Q8H [facility] Last Admin: 11/21/16 09:56 Dose: 200 mls/hr Vancomycin HCl 1,000 mg/ (Sodium Chloride) 250 mls @ 166.667 mls/hr IVPB Q12H [facility] Last Admin: 11/21/16 07:51 Dose: 166.667 mls/hr Pto - Corgard ( (Nadolol) Tab* 80 Mg) 1 dose PO DAILY [facility] Last Admin: 11/21/16 07:58 Dose: 1 dose Ondansetron HCl (Zofran Inj*) 4 mg IV Q6H PRN PRN Reason: NAUSEA Oxycodone/Acetaminophen (Percocet 5/325 Tab*) 2 tab PO Q4H PRN PRN Reason: PAIN Pharmacy Consult (Vancomycin Per Pharmacy*) 1 note FOLLOW UP . PRN PRN Reason: PER PROTOCOL Pharmacy Profile Note (Vancomycin Trough Check) 1 note FOLLOW UP ONCE ONE Stop: 11/22/16 08:31 Vital Signs 11/20/16 11/21/16 11/21/16 23:12 01:02 02:02 Temperature 36.8 C Pulse Rate 60 Respiratory 16 17 17 Rate Blood Pressure 158/72 (mmHg) O2 Sat by Pulse 99 Oximetry 11/21/16 11/21/16 11/21/16 04:12 04:54 05:54 Temperature 36.7 C Pulse Rate 66 Respiratory 16 18 14 Rate Blood Pressure 182/78 (mmHg) O2 Sat by Pulse 99 Oximetry Oxygen Devices in Use Now: None Appearance: No acute distress, talkative Ears/Nose/Mouth/Throat: Clear Oropharnyx Neck: NL Appearance and Movements; NL JVP Respiratory: Clear to Auscultation Cardiovascular: NL Sounds; No Murmurs; No JVD, RRR Abdominal: NL Sounds; No Tenderness; No Distention, No Hepatosplenomegaly Skin: - - diffuse redness and tenderness R ankle, no change from yest, also has bilat chronic venous stasis changes in shins Neurological: Alert and Oriented x 3 Lines/Tubes/Other Access: Clean, Dry and Intact Peripheral IV Result Diagrams: 11/18/16 06:07 11/21/16 05:36 Microbiology and Other Data: Microbiology 11/18/16 09:50 Leg Right Skin and Soft Tissue MRSA/MSSA (PCR - Final 11/18/16 09:50 Leg Right Wound Culture - Final Mrsa Positive S.aureus Positive MRSA Assess/Plan/Problems-Billing Assessment: Mrs. Burch is a 71 yo F with PMH of HTN, chronic venous insufficiency, chronic LE wounds, who presented to ED with c/o pain, edema, erythema of her RLE, found to have cellulitis now proven caused by MRSA. - Patient Problems (1) Cellulitis of right leg Current Visit: Yes Status: Acute Priority: High Code(s): L03.115 - CELLULITIS OF RIGHT LOWER LIMB SNOMED Code(s): 969209989 Comment: - MRI showed subcutaneous edema surrounding ankle, but no drainable fluid collections, no bone marrow edema, suggestive of cellulitis. - Has been seen by ortho re ?septic arthritis and by Dr. Guerrero - Wound culture growing MRSA - discussed with patient, she could go home on oral doxycycline tomorrow, benefitting from IV vancomycin at this point. - pain control now issue, not ready to go home today, will try oral pain relievers (2) DVT prophylaxis Current Visit: Yes Status: Chronic Priority: Medium Code(s): [id number] - SNOMED Code(s): 081240334 Comment: - SQ heparin. (3) HTN (hypertension) Current Visit: Yes Status: Chronic Priority: Medium Code(s): I10 - ESSENTIAL (PRIMARY) HYPERTENSION SNOMED Code(s): 00270143 Comment: - under reasonable control. - continue Nadolol Status and Disposition: Inpatient for management of RLE cellulitis requiring >48h for stabilization.
[2016-11-21] MEDS ORDERED: HYDROcodone/ACETAMIN 5-325 MG* 1 TAB PO PRN (15:39)
[2016-11-21] MEDS: Naproxen TAB* 375 MG PO SCH ×2 (16:07→21:42)
[2016-11-22] MEDS: ceFAZolin 1 GM VIAL(*) 1 GM in NS 0.9% 50 ML* 50 ML IVPB SCH (02:33)
[2016-11-22] MEDS: Acetaminophen TAB* 325 MG PO PRN ×4 (02:34→14:50)
[2016-11-22] MEDS: Heparin VIAL(*) 5000 UNITS/ML VIAL (FIVE THOUSAND) SUBCUT SCH (06:19)
[2016-11-22] MEDS: Naproxen TAB* 375 MG PO SCH ×2 (06:19→14:50)
[2016-11-22] MEDS ORDERED: Vancomycin Trough Check NOTE FOLLOW UP ONE (08:30)
[2016-11-22] MEDS: Furosemide TAB* 40 MG PO SCH (08:30)
[2016-11-22] MEDS: [UNRECOGNIZED DRUG - OTHER] PO SCH (08:30)
[2016-11-22] MEDS: NADOLOL PO SCH (08:30)
[2016-11-22] MEDS: Vancomycin(*) 1,000 MG in NS 0.9% 250 ML* 250 ML IVPB SCH (10:12)
--- NOTE | 2016-11-22 10:31 | PN ---
Progress Note - Progress Note Date of Service: 11/22/16 SOAP: Subjective: CC: cellulitis HPI: 71 year old woman with venous insufficiency admitted with R ankle pain, swelling, and right lower leg swelling and redness. Ankle symptoms all much better, bearing weight without pain. No fever, rash, or diarrhea. Objective: [] Vital Signs Temp 36.4 C 11/22/16 07:39 Pulse 58 11/22/16 07:39 Resp 16 11/22/16 07:39 BP 168/86 11/22/16 10:24 Pulse Ox 98 11/22/16 07:39 Intake & Output 11/21/16 11/22/16 11/22/16 18:59 06:59 18:59 Intake Total 1190 375 360 Output Total 300 0 Balance 890 375 360 Intake: IV Fluids 350 60 ABX - CEFAZOLIN 50 ABX - VANCOMYCIN 250 NS (0.9%) 60 cefazolin 50 IVPB 315 ABX - CEFAZOLIN 55 ABX - VANCOMYCIN 260 Oral 840 0 360 Output: Urine 300 0 Other: # Bowel Movements 0 0 Gen:Awake, no distress Heart:RRR no murmur Lungs:CTA BL Abd:+BS NTND soft Skin: BL LE R>L diffuse mild erythema; superficial anterior ulcerations MSK: R ankle no effusion, trace edema, non tender Microbiology 11/17/16 20:53 Aerobic Blood Culture - Preliminary Blood Venous No Growth Day 4 Anaerobic Blood Culture - Preliminary No Growth Day 4 Blood Culture - Final 11/17/16 20:53 Aerobic Blood Culture - Preliminary Blood Venous No Growth Day 4 Anaerobic Blood Culture - Preliminary No Growth Day 4 Blood Culture - Final Laboratory Results - last 24 hr 11/22/16 07:22 Vancomycin Trough 18.6 Assessment: 1. R LE cellulitis 2. R ight lower extr non pressure chronic wound infection, MRSA 3. venous insufficiency 4. allergy sulfa and amox Plan: 1. vancomycin goal tr 15-20, doxycycline for discharge 2. fu with me 1-2 weeks, and w lymphedema clinic 35 minutes floor time >50% face to face in counseling regarding superintendent terminal lymphedema treatment.
[2016-11-22] MEDS ORDERED: DOXYcycline CAP(*) 100 MG PO ONE (11:37)
[2016-11-22 18:12] VITALS: BP 187/92
--- NOTE | 2016-11-23 13:00 | DS ---
CC: Dr. Goyo Blake; Dr. Guerrero* DISCHARGE SUMMARY: DATE OF ADMISSION: 11/17/16 DATE OF DISCHARGE: 11/22/16 PRIMARY CARE PROVIDER: Dr. Goyo Blake. INFECTIOUS DISEASE: Dr. Guerrero. PRIMARY DIAGNOSIS: Cellulitis. SECONDARY DIAGNOSES: Include: 1. Peripheral vascular disease. 2. Hypertension. 3. Hyperlipidemia. 4. History of tachyarrhythmia. 5. History of chronic edema. MEDICATIONS ON DISCHARGE: Include: 1. Lasix 40 mg daily. 2. Nadolol 40 mg daily. 3. Naprosyn 375 mg every 8 hours as needed for pain. 4. Doxycycline 100 mg twice daily for 10 days. PERTINENT LABORATORY DATA: White blood cell count on presentation 12.4. CRP on presentation 221. PERTINENT VITAL SIGNS: Afebrile during the course of the hospital stay. CONSULTATIONS DURING THE COURSE OF HOSPITAL STAY: Orthopedics and Infectious Disease. PERTINENT IMAGING DURING THE HOSPITAL STAY: Lower extremity venous Doppler study, impression: Suspect cellulitis. No evidence of DVT. Lower extremity MRI, impression: Subcutaneous edema surrounding the right ankle. No drainable fluid collections are noted. No evidence of bone marrow edema is noted. Motion artifact limits the examination. HISTORY OF PRESENT ILLNESS AND HOSPITAL COURSE: This is a 71-year-old female with past medical history as outlined in the history of present illness on the day of admission, presenting to the hospital with worsening lower extremity edema and swelling and erythema of her the right ankle consistent with cellulitis. There was concern for septic arthritis for which Orthopedics and ID are consulted. Both physicians did not suspect cellulitis of the ankle. MRI confirmed this as well as ruled out osteomyelitis. The patient was treated with vancomycin during the course of hospital stay with improvement in her lower extremity erythema. 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 Hospital stay was complicated by continued pain, which hindered her discharge, however, on the day of discharge was only taking Tylenol as needed for pain. The patient was discharged. Follow up with her primary provider as well as Dr. Guerrero on Tuesday, 8 days from today. The patient was concerned about allergic reaction to doxycycline, because she has had multiple adverse reactions to drugs in the past. For this reason, she was given doxycycline prior to her discharge and she had no adverse effect in the 4-1/2 hours of taking the medication prior to her discharge. All new medications prescribed to the pharmacy of patient's choice. There are no complications during the patient's hospital stay. At followup, please; 1. Evaluate for continued healing of lower extremity cellulitis and venous stasis ulcer. No other specific labs or vitals that need followup. 2. Consider additional antihypertensive agent. Blood pressures range from 110s to 160 during the hospital stay. The patient is averse to starting additional antihypertensive agent at this time. Reasons to return to the hospital including, but not limited to, recurrent or worsening symptoms, fevers, chills, night sweats, difficulty breathing, chest pain, increasing erythema, bleeding from lower extremities, loss of consciousness or near loss of consciousness discussed with patient. She acknowledged understanding. TIME SPENT: Greater than 75 minutes was spent on discharge of this patient, of which greater than half was spent [id number] with the patient. [id number]/[facility] #: [id number] CARLITA
[2016-11-24] MEDS ORDERED: Vancomycin Trough Check NOTE FOLLOW UP ONE (09:00)
== END 2016-11-22 18:30 | disposition home or self-care (01) | DRG 383 ==
LOC: ED 17:13 → MED 21:23
PROVIDERS: ADMIT Internal Medicine; ATTEND Internal Medicine
DX: L03.115 Cellulitis of right lower limb (principal); L97.819 Non-pressure chronic ulcer of other part of right lower leg with unspecified severity; B95.62 Methicillin resistant Staphylococcus aureus infection as the cause of diseases classified elsewhere; J98.11 Atelectasis; I73.9 Peripheral vascular disease, unspecified; I10 Essential (primary) hypertension; E78.5 Hyperlipidemia, unspecified; I87.8 Other specified disorders of veins; Z88.1 Allergy status to other antibiotic agents; Z88.2 Allergy status to sulfonamides
CPT/HCPCS: 36415; 71010; 80048; 80053; 80202; 82565; 83605; 84520; 85025; 85610; 86140; 87040; 87070; 87077; 87186; 87205; 87640; 87641; 94760; A9270-GY; J0690; J1644; J2405; J3010; J3370